=== PATIENT | female | born 1950 | race Caucasian/White ===

== ENCOUNTER → 2017-01-13 | Day surgery (SDC) | payer MEDICARE ==
[~2017-01-13] VITALS: Ht 162.6 cm; Wt 74.8 kg
[~2017-01-13] MED LIST: DIPH25CA6 PO; Lactated Ringer's 1,000 ML IV ONE; Lactated Ringer's 1,000 ML IV SCH; MetoCLOpramide 5 mg/mL 2 mL Inj IVPUSH PRN; Ondansetron 2 mg/mL 2 mL Inj IVPUSH PRN; Propofol 10,000 mCg/mL 20 mL Inj ONE
[2017-01-13 08:03] VITALS: BP 136/79; PULSE 78; RESP 16; O2SAT 98
--- NOTE | 2017-01-13 08:23 | PCM.HPANE ---
Patient Data Date of Service: Jan 13, 2017 Surgeon Admitting Provider: Attending Provider:Sergo Chambers MD Primary Care Physician:Dominique Chavarria Other Provider:Alejandra Parry Anesthesia Reason for Visit Hx Of Adenomatous Polyp Of Colon Ht/WT & BMI Height (Feet): 5 Height (Inches): 4 Weight (Kilograms): 74.84 Body Mass Index 28.00 Allergies Coded Allergies: codeine (Verified Allergy, Unknown, 01/08/17) Past Anesthesia History Anesthesia History: Denies:: Abnormal Airway, Anesthesia Reactions, Difficult Intubation, Fam Anesthesia Reaction, Fam Malignant Hypertherm, Malignant Hyperthermia Diabetes History Hx Diabetes?: No MRSA MRSA: No Medications Hypertension Medication: No Home Meds Incl Beta Miah: No Discontinued Reported Medications diphenhydrAMINE HCl (Benadryl)25 Mg [place]76 Mg PO Q4 PRN For Itching Ref 0 01/08/17 History History of ENT Problems?: No HEENT History: Denies:: Abnormal Airway Difficult Intubation Dysphagia Hearing Problem Denture Type: None Teeth Condition: Within Normal Limits Hx of Heart Problems?: No Cardiovascular History: Denies:: Atrial Fibrillation Chest Pain Hypertension Valvular Heart Disease Hx of Respiratory Problem?: Yes Respiratory History: Positive for:: Use of C-PAP Machine (off CPAP currently) Denies:: Asthma Hx Neurologic Problems?: No Neurological History: Denies:: CVA Hx of GI Problems?: Yes Hx of Problems?: No HX of Peritoneal Dialysis: No Female Hx: Denies:: Currently Hx Musculoskeletal Problems?: Yes Musculoskeletal History: Positive for:: Fibromyalgia (HX OF. PT HAS BEEN CURED WITH SPIRITUAL EXPERIENCE) Denies:: Joint Replacement Hx of Psycho/Social Problems?: No Psycho Social History: Denies:: Anxiety Hx Depression Hx Surgeries?: Yes (SHOULDER, FOOT SX) Hx Any Other Health Problems?: Yes Hx Diabetes: No Hx Alcohol Use: NoHx Substance Use: NoHave You Smoked inLast 12 mo: No Stop/Bang Treated for Sleep Apnea?: Yes (dx with mild rhea) Do You Have a CPAP Machine?: No S-Snoring: Do You Snore Loudly: No T-Tired: feel tired, fatigued: No O-Obsered: Observed not breath: No P-Blood Pressure: treated: No B- Body Mass Index > 35 kg/m2: No A- Age over 50: Yes N- Neck Large Circumference: No G- Gender Male: No RHEA Total Score: 1 RHEA Category 2: Yes Risk Assessment Category Category 1A: Patient has history of documented sleep apnea, and HAS NOT received any narcotic, sedative or anesthesia administration during this stay. Category 1B: Patient has history of documented sleep apnea, and HAS received any narcotic , sedative or anesthesia administration during this stay Category 2: Patient has SUSPECTED Obstructive Sleep Apnea, and HAS received any narcotic , sedative or anesthesia administration during this stay. Category 3: Patient has SUSPECTED Obstructive Sleep Apnea and HAS NOT received narcotic, sedative or anesthesia administration during this stay. Category 4: Outpatient in Procedural Areas with known sleep apnea or who screen positive for High Risk via the STOP/BANG questionnaire. Exam Exam Vital Signs Vital Signs Date Time Temp Pulse Resp B/P Pulse Ox O2 Delivery O2 Flow Rate FiO2 01/13/17 08:03 78 16 136/79 98 Room Air General Appearance: Alert, Oriented X3, Cooperative HEENT/AIRWAY: MP 2, Neck Movement Lungs: Clear to Auscultation, Normal Air Movement Heart: Regular Rate/Rhythm, Normal S1, Normal S2 Meds/Labs/Diagnostics Admission Meds Current Medications Lactated Ringer's (Lr) 1,000 ml @ 10 mls/hr Q24H ONCE IV Last administered on 01/13/17t 08:15; Start 01/13/17 at 06:00; Stop 01/14/17 at 05:59 Plan Impression Patient chart reviewed, patient interviewed and anesthestic plan with risks, benefits, and alternatives discussed, and informed consent obtained. NPO per Anesth. Guidelines: Yes ASA Physical Status: ASA2 Mod Systemic Disease Anesthetic Plan: MAC Bene/Risks/Altern/Consents: Yes HP Complete Prior to Induction: Yes Other MNC - mild RHEA, fibromyalgia, failed previous conscious sedation Phillip Hdz MD Jan 13, 2017 08:23
[2017-01-13 08:47] VITALS: BP 114/64; PULSE 65; RESP 16; O2SAT 95
--- NOTE | 2017-01-13 08:53 | PCM.ANEP1 ---
Post Anesthesia PACU Phase 1 Assessment Date of Service: Jan 13, 2017 Vital Signs Vital Signs Date Time Temp Pulse Resp B/P Pulse Ox O2 Delivery O2 Flow Rate FiO2 01/13/17 08:47 65 16 114/64 95 Room Air 01/13/17 08:03 78 16 136/79 98 Room Air Anesthetic Administered: MAC Level of Alertness: Sleepy, easy to arouse GONSALVES's with Equal Strength: Yes Pain: No Nausea or Vomiting: No CV Function & Hydration Stable: Yes Airway Device: Oxygen Delivery: Room Air Lungs: Normal Air Movement Dermatome Level: Full Sensation PACU Phase 2 Assessment Complications: No Follow up Care: N/A Patient Instructions Provided: N/A Phillip Hdz MD Jan 13, 2017 08:53
[2017-01-13 08:56] VITALS: BP 109/60; PULSE 60; RESP 16; O2SAT 95
[2017-01-13 09:02] VITALS: BP 108/60; PULSE 59; RESP 14; O2SAT 97
--- NOTE | 2017-01-13 09:08 | ENDO ---
[address] [address] ENDOSCOPY PROCEDURE PATIENT: VU HEIN : 1950 MR#: [id number] ADMIT: 01/13/2017 JOB ID: [id number] DATE: 01/13/2017 TYPE OF OPERATION: Colonoscopy with biopsy. PREOPERATIVE DIAGNOSIS(ES): History of tubular adenoma polyps. POSTOPERATIVE DIAGNOSIS(ES): 1. Mild inflammation of the cecum near the appendix status post biopsy. 2. A 3 mm ascending colon polyp, removed by cold biopsy forceps. 3. A 2 mm sigmoid colon polyp removed by cold biopsy forceps. ANESTHESIA: Monitored anesthesia care. COMPLICATIONS: None. BLOOD LOSS: Minimal. DESCRIPTION OF PROCEDURE: After risks and benefits were explained to the patient, informed consent was obtained. After anesthesia was administered, an colonoscope was inserted from the rectum to the terminal ileum and mucosa carefully examined. Prep of the patient was excellent. After the procedure was done, the scope withdrawn and procedure terminated. FINDINGS: Upon inspection of the anus, no masses, hemorrhoids, ulcers, fissures that were seen. Throughout the entire examination, there was mild inflammation that was seen in the cecum around the appendiceal orifice which was biopsied. Also 3 mm ascending colon polyp, and a 2 mm sigmoid colon polyp were removed by cold biopsy forceps. Retroflexion was normal. IMPRESSIONS: 1. A mild inflammation in the cecum, mild erythema in the cecum and appendiceal orifice status post biopsy. 2. A 3 mm ascending colon and 2 mm sigmoid colon polyp removed by cold biopsy. RECOMMENDATION: 1. Await pathology results. 2. Repeat colonoscopy in five years given history of adenoma polyps.
--- NOTE | 2017-01-15 16:27 | PATH ---
SURGICAL PATHOLOGY Attending Physician:Sergo Chambers MD CASE STATUS: Signed Out PATIENT NAME: VU HEIN PID: [id number] : 1950 DATE COLLECTED:01/13/2017 21:48 SPECIMEN: 1: Colon, Biopsy 2: Colon, Polyp 3: Colon, Polyp CLINICAL HISTORY: INFLAMMATION 1). CECUM 2). ASCENDING COLON POLYP 3). SIGMOID COLON POLYP FINAL DIAGNOSIS: 1. Cecum, Biopsy: Colonic mucosa with no diagnostic abnormality. Negative for active or microscopic colitis. Negative for granulomata, dysplasia or malignancy. 2. Ascending Colon Polyp, Biopsy: Tubular adenoma. 3. Sigmoid Colon Polyp, Biopsy: Colonic mucosa with no diagnostic abnormality consistent with polypoid redundancy. ICD10: D12.2 GROSS DESCRIPTION: The specimen is received in three formalin filled containers labeled with the patient's name. 1). The specimen is labeled "cecum" and consists of a 0.3 x 0.2 x 0.2 CM portion of tissue which is entirely submitted in cassettes 1A. 2). The specimen is labeled "ascending colon polyp" and consists of 2 portions of tissue which aggregate to 0.3 x 0.3 x 0.2 CM. The specimen is entirely submitted in cassette 2A. 3). The specimen is labeled "sigmoid colon polyp" and consists of a 0.2 x 0.1 x 0.1 CM portion of tissue which is entirely submitted in cassette 3A. 01/13/2017CO ICD-9 CODES: CPT CODES: 1: 15223 2: 56828 3: 76895 Electronically Signed Out Chirag Busby MD, Ph.D. [facility] [address], [place] [address] Technical component performed at [facility], [facility] [address], [place], [address]
== END | disposition home or self-care (01) ==
LOC: END 00:17
PROVIDERS: ATTEND Internal Medicine Gastroenterology
DX: Z12.11 Encounter for screening for malignant neoplasm of colon (principal); D12.2 Benign neoplasm of ascending colon; K62.1 Rectal polyp; Z86.010 Personal history of colon polyps; G47.33 Obstructive sleep apnea (adult) (pediatric); Z92.83 Personal history of failed moderate sedation; M79.7 Fibromyalgia; Z80.0 Family history of malignant neoplasm of digestive organs
CPT/HCPCS: 45380; 88305; J2704; J7120